=== PATIENT | female | born 1985 | race Caucasian/White ===

== ENCOUNTER 2019-07-12 22:05 | Emergency (ER) | payer MEDICAID ==
[2019-07-12 22:36] VITALS: BP 125/78
== END 2019-07-13 00:15 | disposition left against medical advice (07) ==
LOC: ED 22:05
DX: Z53.21 Procedure and treatment not carried out due to patient leaving prior to being seen by health care provider (principal)

== ENCOUNTER 2019-07-13 02:06 | Inpatient (IN) | payer MEDICAID ==
--- NOTE | 2019-07-13 02:43 | ED Physician Documentation ---
History of Present Illness - Stated complaint Stated Complaint: LT ARM PX - Chief complaint Chief Complaint: Wound - History obtained from History obtained from: Patient - History of Present Illness Timing: Yesterday Pain level now: 8 Improved by: rest Worsened by: movement, palpation Associated symptoms: swelling, rash - Additonal information Additional information: c/o left arm redness, swelling, pain, tenderness since yesterday. Patient is IV heroin user and she "tried to inject" into the area 3 days ago (says she could not get into a vein), and yesterday developed these symptoms and signs which have rapidly progressed since then. She denies h/o similar problem. Review of Systems Constitutional: denies: Fever, Chills, Sweats Cardiac: reports: Reviewed and negative Respiratory: reports: Reviewed and negative GI: reports: Reviewed and negative Skin: reports: Rash Musculoskeletal: reports: Extremity pain, Joint pain, Extremity swelling, Joint swelling Neurologic: denies: Focal weakness, Numbness PD PAST MEDICAL HISTORY - Past Medical History Cardiovascular: None Respiratory: None Neuro: None Endocrine/Autoimmune: None GI: None, Hepatitis ENGINE MAINTENANCE MECHANIC: None : None HEENT: None Psych: None Musculoskeletal: None Derm: Other Other Past Medical History: multiple open lesions noted to face and arms. HEPATITIS C - Past Surgical History Past Surgical History: Yes General: Cholecystectomy /ENGINE MAINTENANCE MECHANIC: Tubal ligation - Present Medications Home Medications: Ambulatory Orders Medication Instructions Recorded Confirmed No Known Home Medications 07/12/19 07/12/19 - Allergies Allergies/Adverse Reactions: Allergies Allergy/AdvReac Type Severity Reaction Status Date / Time No Known Drug Allergies Allergy Verified 07/12/19 22:36 - Social History Does the pt smoke?: Yes Smoking Status: Current every day smoker Does the pt drink ETOH?: No Does the pt have substance abuse?: Yes Substance Use and Type: Meth, Heroin - Immunizations Immunizations are current?: Yes - POLST Patient has POLST: No PD ED PE NORMAL - Vitals Vital signs reviewed: Yes - General General: Alert and oriented X 3, No acute distress, Well developed/nourished - Neck Neck: Supple, no meningeal sign - Cardiac Cardiac: RRR, No murmur - Respiratory Respiratory: No respiratory distress, Clear bilaterally - Abdomen Abdomen: Soft, Non tender PD ED PE EXPANDED - Extremities JEAN-CLAUDE UE/Hands Visual: 1 - rash (confluent erythema with sharp margins, hot to touch, worst at anterolateral elbow where there is large focal swelling and fluctuance with exquisite tenderness. limited elbow and FA ROM due to pain) Results - Vitals Vitals: Vital Signs - 24 hr 07/13/19 07/13/19 07/13/19 02:25 04:41 05:01 Temperature 36.5 C 36.5 C Heart Rate 112 H 100 98 Respiratory 20 15 16 Rate Blood Pressure 124/89 H 105/69 105/69 O2 Saturation 99 97 98 Oxygen O2 Source Room air - Labs Labs: Laboratory Tests 07/13/19 07/13/19 07/13/19 03:00 03:00 03:00 WBC 12.8 H RBC 4.32 Hgb 11.6 L Hct 36.8 L MCV 85.2 MCH 26.9 L MCHC 31.5 L RDW 14.0 Plt Count 423 MPV 9.2 Neut # (Auto) 9.8 H Lymph # (Auto) 2.0 [place] # (Auto) 0.8 Eos # (Auto) 0.2 Baso # (Auto) 0.1 Absolute Nucleated RBC 0.00 Nucleated RBC % 0.0 ESR PT INR Sodium 133 L Potassium 3.5 Chloride 93 L Carbon Dioxide 29 Anion Gap 11.0 BUN 18 Creatinine 0.5 Estimated GFR (MDRD) 142 Glucose 120 H Lactic Acid 0.8 Calcium 8.9 Total Bilirubin 0.7 AST 65 H ALT 65 H Alkaline Phosphatase 73 Total Creatine Kinase C-Reactive Protein Total Protein 8.1 Albumin 3.6 Globulin 4.5 H Albumin/Globulin Ratio 0.8 L Lipase 23 07/13/19 07/13/19 07/13/19 03:00 03:00 03:00 WBC RBC Hgb Hct MCV MCH MCHC RDW Plt Count MPV Neut # (Auto) Lymph # (Auto) [place] # (Auto) Eos # (Auto) Baso # (Auto) Absolute Nucleated RBC Nucleated RBC % ESR 40 H PT INR Sodium Potassium Chloride Carbon Dioxide Anion Gap BUN Creatinine Estimated GFR (MDRD) Glucose Lactic Acid Calcium Total Bilirubin AST ALT Alkaline Phosphatase Total Creatine Kinase 57 C-Reactive Protein 6.4 H Total Protein Albumin Globulin Albumin/Globulin Ratio Lipase 07/13/19 03:00 WBC RBC Hgb Hct MCV MCH MCHC RDW Plt Count MPV Neut # (Auto) Lymph # (Auto) [place] # (Auto) Eos # (Auto) Baso # (Auto) Absolute Nucleated RBC Nucleated RBC % ESR PT 13.3 H INR 1.2 Sodium Potassium Chloride Carbon Dioxide Anion Gap BUN Creatinine Estimated GFR (MDRD) Glucose Lactic Acid Calcium Total Bilirubin AST ALT Alkaline Phosphatase Total Creatine Kinase C-Reactive Protein Total Protein Albumin Globulin Albumin/Globulin Ratio Lipase - Rads (name of study) CT LUE with IV contrast Radiology: Prelim report reviewed, See rad report PD MEDICAL DECISION MAKING - ED course Complexity details: reviewed results, re-evaluated patient, considered differential, d/w patient Departure - Departure Disposition: [facility] DC/Xfer Clinical Impression: Abscess, Cellulitis Condition: Good Discharge Date/Time: 07/13/19 06:00
[2019-07-13] MEDS ORDERED: VANCOMYCIN INJ 1 GM in SODIUM CHLORIDE 0.9% 500 ML IV STA (03:16)
[2019-07-13] MEDS ORDERED: PIPERACILLIN/TAZOBACTAM 3.375 GM in SODIUM CHLORIDE 0.9% MINIBAG 100 ML IV STA (03:16)
[2019-07-13 03:19] LABS: BASOPHILS # (AUTO) 0.1 10^3/uL (0.0-0.1); BASOPHILS % (AUTO) 0.5 %; EOSINOPHILS # (AUTO) 0.2 10^3/uL (0.0-0.7); EOSINOPHILS % (AUTO) 1.3 %; HGB - HEMOGLOBIN 11.6 g/dL (12.0-16.0); LYMPHOCYTES % (AUTO) 15.6 %; MEAN CORPUSCULAR HEMOGLOBIN 26.9 pg (27.0-31.0); MEAN CORPUSCULAR HGB CONC 31.5 g/dL (32.0-36.0); MEAN CORPUSCULAR VOLUME 85.2 fL (81.0-99.0); MEAN PLATELET VOLUME 9.2 fL (7.9-10.8); MONOCYTES # (AUTO) 0.8 10^3/uL (0.0-1.0); MONOCYTES % (AUTO) 5.9 %; NEUTROPHILS # (AUTO) 9.8 10^3/uL (1.5-6.6); NEUTROPHILS % (AUTO) 76.2 %; PLT - PLATELET COUNT 423 10^3/uL (130-450); RED BLOOD COUNT 4.32 10^6/uL (4.20-5.40); WHITE BLOOD COUNT 12.8 x10^3/uL (4.8-10.8)
[2019-07-13 03:40] LABS: ALBUMIN 3.6 g/dL (3.2-5.5); ALBUMIN/GLOBULIN RATIO 0.8 (1.0-2.2); BILIRUBIN,TOTAL 0.7 mg/dL (0.2-1.0); CALCIUM 8.9 mg/dL (8.5-10.3); CREATININE 0.5 mg/dL (0.4-1.0); TOTAL PROTEIN 8.1 g/dL (6.7-8.2)
[2019-07-13] MEDS ORDERED: IOVERSOL 320 100 ML VIAL IVP ONE ×2 (04:24→04:31)
--- NOTE | 2019-07-13 04:52 | CT Report ---
Reason: LUE, abscess Procedure Date: 07/13/2019 Accession Number: [id number] / [id number] Procedure: CT - UPPER EXTREMITY W - LT CPT Code: Final Report FULL RESULT: EXAM: LEFT UPPER EXTREMITY CT WITH CONTRAST EXAM DATE: 07/13/2019 04:32 AM CLINICAL HISTORY: Left upper extremity redness and swelling, unable to lift arm, abscess. COMPARISON: None. TECHNIQUE: Thin-section axial images were acquired of the upper extremity from the mid humerus through the elbow after administration of intravenous contrast. IV contrast: . Post-processing: Coronal and sagittal reformats. Other: None. In accordance with CT protocol optimization, one or more of the following dose reduction techniques were utilized for this exam: automated exposure control, adjustment of mA and/or KV based on patient size, or use of iterative reconstructive technique. FINDINGS: Bones: No fracture or bone lesion. Joints: The visualized joint spaces are normal. Soft Tissues: Rim-enhancing subcutaneous and intramuscular abscess at the lateral aspect of the antecubital fossa measuring approximately 3 x 3 x 3 cm and is within a few millimeters of the skin surface. Collection involves the subcutaneous tissues as well as the anterior aspect of the brachioradialis muscle. Diffuse subcutaneous edema, consistent with surrounding cellulitis. No other abscess seen. No soft tissue gas. No vascular thrombosis. IMPRESSION: Approximately 3 x 3 x 3 cm abscess at the lateral aspect of the antecubital fossa which involves the subcutaneous tissues and proximal forearm musculature. RADIA
[2019-07-13] MEDS ORDERED: SODIUM CHLORIDE FLUSH 0.9% 10 ML SYRINGE IVP PRN (05:31)
--- NOTE | 2019-07-13 06:12 | HISTORY & PHYSICAL EXAMINATION ---
Chief Complaint - Chief Complaint Chief Complaint: Left arm swelling and redness History of Present Illness - Admitted From Admitted From:: Home - History Obtained From Records Reviewed: Yes History obtained from: Patient, ER Physician - History of Present Illness HPI Comment/Other: This is a 33 year old homeless female with a past medical history significant for meth and heroin use, and hepatitis C who presents complaining of left arm redness and swelling. Her arm became red two days ago but this has progressed over the last two days. She now has an area of swelling near her elbow that is tender to touch. She does use IV heroin and meth with her last use being one day ago when she used both. She last injected in that arm about four days ago. She reports no fevers, chills, nausea, vomiting. She has not had similar complaints in the past. She does have hepatitis C but denies a history of HIV. In the emergency department, she was afebrile but tachycardic. Blood pressure was borderline hypotensive but she reports that her blood pressure is on the lower side. Labs revealed an elevated white count with a left shift. Normal lactic acid. AST/ALT are mildly elevated. A CT of the left arm revealed a [id number] abscess at the lateral aspect for AC fossa involving subcutaneous tissue and proximal forearm muscles. Medicine was consulted for admission given these findings. 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 Living arrangement: Homeless Social History Notes: She is homeless and lives in [place], [place]. She is visiting her aunt and uncle here on [facility] for a few days. Reports smoking half a pack of cigarettes a day. Uses IV heroin and meth frequently. Last use was one day ago and she has been doing this since a teenager. Denies alcohol use. - Substance History Abuse: Recurrent use of substance despite neg consequences: Amphetamine, Opioid - POLST Patient has POLST: No Meds/Allgy - Home Medications Home Medications: Ambulatory Orders Medication Instructions Recorded Confirmed No Known Home Medications 07/12/19 07/12/19 - Allergies Allergies/Adverse Reactions: Allergies Allergy/AdvReac Type Severity Reaction Status Date / Time No Known Drug Allergies Allergy Verified 07/12/19 22:36 Review of Systems - Constitutional Constitutional: denies: Fatigue, Fever, Chills, Weakness, Poor appetite - Cardiovascular Cariovascular: denies: Chest pain, Lightheadedness, Exertional dyspnea, Decr. e xercise tolerance - Respiratory Respiratory: denies: Cough, SOB at rest, SOB with exertion - Gastrointestinal Gastrointestinal: denies: Abdominal pain, Nausea, Vomiting - Genitourinary Genitourinary: denies: Dysuria, Frequency, Urgency - Musculoskeletal Musculoskeletal: reports: Stiffness, Limited range of motion - Integumentary Integumentary: reports: Other (Erythema of left arm). denies: Rash - Neurological Neurological: reports: Numbness. denies: General weakness, Focal weakness, Dizziness - All Other Systems All Other Systems: reports: Reviewed and negative Prior Level of Functionality: Independent with ADL's. Exam - Vital Signs Reviewed Vital Signs: Yes Vital Signs: Vital Signs x48h Temp Pulse Resp BP Pulse Ox 07/13/19 05:01 36.5 C 98 16 105/69 98 07/13/19 04:41 100 15 105/69 97 07/13/19 02:25 36.5 C 112 H 20 124/89 H 99 - Physical Exam General Appearance: positive: No acute distress, Alert Eyes Bilateral: positive: Normal inspection ENT: positive: ENT inspection nml Neck: positive: Nml inspection Respiratory: positive: No respiratory distress, Breath sounds nml. negative: Wheezes, Rales, Rhonchi Cardiovascular: positive: No murmur, Tachycardia. negative: Bradycardia, Systolic murmur, Diastolic murmur Peripheral Pulses: positive: 2+ Abdomen: positive: Non-tender, No distention. negative: Tenderness, Guarding, Rebound Skin: positive: Color nml, Warm, Dry, Other (Erythema of her left arm extending form the mid humerus to the mid forearm. There is an area of induration over the lateral aspect of her forearm that is about 3cm. It is tender and warm to touch.) Extremities: positive: No pedal edema. negative: Non-tender (Decreased range of motion of the left forearm secondary to swelling and pain.) Neurologic/Psychiatric: positive: Oriented x3, Motor nml. negative: Disoriented to person, Disoriented to place, Disoriented to time, Weakness Sepsis Event Note (H) - Evaluation Current Stage of Sepsis: Sepsis Possible source of Sepsis: positive: Skin/soft tissue - Sepsis Criteria Sepsis Criteria: Recorded Heart Rate greater than 90 bpm, WBC count greater than 12,000 or less than 4000 Conclusion/Plan - Problem List (1) Sepsis due to cellulitis Conclusion/Plan: This is secondary to her left forearm abscess and cellulitis. Presented with tachycardia and leukocytosis with left shift. Will continue Vancomycin IV and follow up blood cultures to rule out bacteremia. Monitor CBC. (2) Abscess of left forearm Conclusion/Plan: She has a [id number] abscess of the proximal left forearm involving the subcutaneous tissue and proximal forearm muscles and surround cellulitis. This is the source of her sepsis. Likely secondary to her IV drug use. Will continue Vancomycin IV given her IV drug use history to cover for MRSA. Will hold off on anaerobic coverage as she is not immunocompromised. Check ESR/CRP. Will consult orthopedics for I&D. (3) IV drug user Conclusion/Plan: She regularly uses IV meth and heroin with last use being one day ago. Does not appear to be going through withdrawal at this time. Will monitor for signs of withdrawal. Social work consult. (4) Hepatitis C Conclusion/Plan: Secondary to IV drug use. AST/ALT elevated in the 60's. Outpatient follow up. - Lab Results Lab results reviewed: Yes Fish Bones: 07/13/19 03:00 07/13/19 03:00 - Diagnostic Imaging Results Diagnostic Imaging Results: positive: Final report reviewed Core Measures - Anticipated LOS I expect patient to be DC'd or transferred within 96 hours.: Yes - Issues Hospital Issues and Management Plan: Abscess of left forearm extending to musculature that will require drainage and IV antibiotics. - DVT/VTE - Prophylaxis VTE/DVT Device ordered at admit?: Yes VTE/DVT Prophylaxis med ordered at admit?: Yes
[2019-07-13] MEDS ORDERED: LACTATED RINGERS 1,000 ML IV ONE ×3 (06:37→12:44)
[2019-07-13 07:01] LABS: INR 1.2 (0.8-1.2); PT - PROTHROMBIN TIME 13.3 secs (9.9-12.6)
[2019-07-13] MEDS: LACTATED RINGERS 1,000 ML IV SCH ×2 (08:00→16:41)
[2019-07-13] MEDS ORDERED: SODIUM CHLORIDE FLUSH 0.9% 10 ML SYRINGE IVP SCH (09:00)
[2019-07-13] MEDS ORDERED: SODIUM CHLORIDE 0.9% IV SCH ×2 (09:00)
[2019-07-13] MEDS ORDERED: VANCOMYCIN PER PHARMACY IV SCH (09:00)
[2019-07-13] MEDS ORDERED: VANCOMYCIN IV SCH (09:00)
--- NOTE | 2019-07-13 10:27 | PROVIDER PROGRESS NOTE ---
Subjective - Prog Note Date Prog Note Date: 07/13/19 Prog Note Time: 10:25 - Subjective Pt reports feeling: Worse (IV drug abuser with a four day history of worsening left proximal forearm swelling and redness at an injection site.) Objective - Vital Signs/Intake & Output Vital Signs: Vital Signs x48h Temp Pulse Pulse Resp BP BP Pulse Ox 07/13/19 08:44 36.6 C 89 16 97 07/13/19 08:10 36.4 C L 98 16 94/61 97 07/13/19 07:51 36.6 C 89 16 95/59 L 99 07/13/19 06:20 37 C 96 16 96/50 L 98 07/13/19 05:01 36.5 C 98 16 105/69 98 07/13/19 04:41 100 15 105/69 97 Intake & Output: Intake & Output 07/10/19 07/11/19 07/12/19 07/13/19 23:59 23:59 23:59 23:59 Intake Total 1600 Balance 1600 - Lab Results Fish Bones: 07/13/19 03:00 07/13/19 03:00 Other Labs: Lab Results x24hrs 07/13/19 07/13/19 07/13/19 Range/Units 03:00 03:00 03:00 WBC (4.8-10.8) x10^3/uL RBC (4.20-5.40) 10^6/uL Hgb (12.0-16.0) g/dL Hct (37.0-47.0) % MCV (81.0-99.0) fL MCH (27.0-31.0) pg MCHC (32.0-36.0) g/dL RDW (12.0-15.0) % Plt Count (130-450) 10^3/uL MPV (7.9-10.8) fL Neut # (Auto) (1.5-6.6) 10^3/uL Lymph # (Auto) (1.5-3.5) 10^3/uL [place] # (Auto) (0.0-1.0) 10^3/uL Eos # (Auto) (0.0-0.7) 10^3/uL Baso # (Auto) (0.0-0.1) 10^3/uL Absolute Nucleated RBC x10^3/uL Nucleated RBC % /100WBC ESR (0-20) mm/Hr PT 13.3 H (9.9-12.6) secs INR 1.2 (0.8-1.2) Sodium (135-145) mmol/L Potassium (3.5-5.0) mmol/L Chloride (101-111) mmol/L Carbon Dioxide (21-32) mmol/L Anion Gap (6-13) BUN (6-20) mg/dL Creatinine (0.4-1.0) mg/dL Estimated GFR (MDRD) (>89) Glucose (70-100) mg/dL Lactic Acid (0.5-2.2) mmol/L Calcium (8.5-10.3) mg/dL Total Bilirubin (0.2-1.0) mg/dL AST (10-42) IU/L ALT (10-60) IU/L Alkaline Phosphatase (42-121) IU/L Total Creatine Kinase 57 (22-269) IU/L C-Reactive Protein 6.4 H (0-1.0) mg/dL Total Protein (6.7-8.2) g/dL Albumin (3.2-5.5) g/dL Globulin (2.1-4.2) g/dL Albumin/Globulin Ratio (1.0-2.2) Lipase (22-51) U/L 07/13/19 07/13/19 07/13/19 Range/Units 03:00 03:00 03:00 WBC (4.8-10.8) x10^3/uL RBC (4.20-5.40) 10^6/uL Hgb (12.0-16.0) g/dL Hct (37.0-47.0) % MCV (81.0-99.0) fL MCH (27.0-31.0) pg MCHC (32.0-36.0) g/dL RDW (12.0-15.0) % Plt Count (130-450) 10^3/uL MPV (7.9-10.8) fL Neut # (Auto) (1.5-6.6) 10^3/uL Lymph # (Auto) (1.5-3.5) 10^3/uL [place] # (Auto) (0.0-1.0) 10^3/uL Eos # (Auto) (0.0-0.7) 10^3/uL Baso # (Auto) (0.0-0.1) 10^3/uL Absolute Nucleated RBC x10^3/uL Nucleated RBC % /100WBC ESR 40 H (0-20) mm/Hr PT (9.9-12.6) secs INR (0.8-1.2) Sodium 133 L (135-145) mmol/L Potassium 3.5 (3.5-5.0) mmol/L Chloride 93 L (101-111) mmol/L Carbon Dioxide 29 (21-32) mmol/L Anion Gap 11.0 (6-13) BUN 18 (6-20) mg/dL Creatinine 0.5 (0.4-1.0) mg/dL Estimated GFR (MDRD) 142 (>89) Glucose 120 H (70-100) mg/dL Lactic Acid 0.8 (0.5-2.2) mmol/L Calcium 8.9 (8.5-10.3) mg/dL Total Bilirubin 0.7 (0.2-1.0) mg/dL AST 65 H (10-42) IU/L ALT 65 H (10-60) IU/L Alkaline Phosphatase 73 (42-121) IU/L Total Creatine Kinase (22-269) IU/L C-Reactive Protein (0-1.0) mg/dL Total Protein 8.1 (6.7-8.2) g/dL Albumin 3.6 (3.2-5.5) g/dL Globulin 4.5 H (2.1-4.2) g/dL Albumin/Globulin Ratio 0.8 L (1.0-2.2) Lipase 23 (22-51) U/L 07/13/19 Range/Units 03:00 WBC 12.8 H (4.8-10.8) x10^3/uL RBC 4.32 (4.20-5.40) 10^6/uL Hgb 11.6 L (12.0-16.0) g/dL Hct 36.8 L (37.0-47.0) % MCV 85.2 (81.0-99.0) fL MCH 26.9 L (27.0-31.0) pg MCHC 31.5 L (32.0-36.0) g/dL RDW 14.0 (12.0-15.0) % Plt Count 423 (130-450) 10^3/uL MPV 9.2 (7.9-10.8) fL Neut # (Auto) 9.8 H (1.5-6.6) 10^3/uL Lymph # (Auto) 2.0 (1.5-3.5) 10^3/uL [place] # (Auto) 0.8 (0.0-1.0) 10^3/uL Eos # (Auto) 0.2 (0.0-0.7) 10^3/uL Baso # (Auto) 0.1 (0.0-0.1) 10^3/uL Absolute Nucleated RBC 0.00 x10^3/uL Nucleated RBC % 0.0 /100WBC ESR (0-20) mm/Hr PT (9.9-12.6) secs INR (0.8-1.2) Sodium (135-145) mmol/L Potassium (3.5-5.0) mmol/L Chloride (101-111) mmol/L Carbon Dioxide (21-32) mmol/L Anion Gap (6-13) BUN (6-20) mg/dL Creatinine (0.4-1.0) mg/dL Estimated GFR (MDRD) (>89) Glucose (70-100) mg/dL Lactic Acid (0.5-2.2) mmol/L Calcium (8.5-10.3) mg/dL Total Bilirubin (0.2-1.0) mg/dL AST (10-42) IU/L ALT (10-60) IU/L Alkaline Phosphatase (42-121) IU/L Total Creatine Kinase (22-269) IU/L C-Reactive Protein (0-1.0) mg/dL Total Protein (6.7-8.2) g/dL Albumin (3.2-5.5) g/dL Globulin (2.1-4.2) g/dL Albumin/Globulin Ratio (1.0-2.2) Lipase (22-51) U/L - Diagnostic Imaging Diagnostic Imaging Comments: CT scan shows probable anterolateral proximal forearm abscess with surrounding cellulitis - Other Results/Comments Other Results/Comments: EXAM: Left elbow/forearm: Exquisitely tender, red, swollen mass lateral to the antcubital fossa, measuring 4 cmdiameter.. Painful elbow motion from tender mass. MOves fingers well. Sensation intact. Sepsis Event Note (H) - Evaluation Current Stage of Sepsis: Sepsis Possible source of Sepsis: positive: Skin/soft tissue - Sepsis Criteria Sepsis Criteria: Recorded Heart Rate greater than 90 bpm, WBC count greater than 12,000 or less than 4000 Assessment/Plan - Problem List (1) Abscess of left forearm Impression: PLAN: To OR this AM for I&D of left forearm abscess. Consent signed.
--- NOTE | 2019-07-13 11:09 | CONSULTATION NOTE ---
DATE OF SERVICE: 07/13/2019 Physician: Reece Figureedo MD REFERRING PHYSICIAN: Dr. Mejia of the hospitalist service CHIEF COMPLAINT: "My left elbow hurts." HISTORY OF PRESENT ILLNESS: Patient is a 33-year-old female, right hand dominant, IV drug abuser, who apparently injected the lateral aspect of her elbow approximately 4 days ago. About 2 da ys prior to admission, she began noticing increasing redness, swelling and tenderness at the injectio n site. It finally reached the point where she had to seek medical attention last evening. She jeremiah es any distal weakness or numbness. Is able to move her fingers and her thumb well. Denies any prio r abscesses that required surgical treatment. Apparently, she had some food at about 2 in the mornin g. PHYSICAL EXAMINATION: Patient's left forearm and elbow were examined. She is hesitant to move the e lbow secondary to pain to the mass that is visible in the lateral aspect of her antecubital fossa reg ion. This mass appears to be about 4 cm in diameter, is red, tender, and quite swollen. Neurovascul ar appears to be intact distally in the upper extremity. IMAGING: CT scan that was done of the forearm was reviewed and shows a collection of fluid, likely a n abscess, which corresponds to the area that was seen clinically. ASSESSMENT: 1. Left nondominant forearm abscess lateral to the antecubital area from intravenous injection site 4 days ago. 2. History of intravenous drug abuse. PLAN: We will plan on taking her to the operating room later this morning to do an incision and drai nage of her abscess in the forearm. The risks and benefits of surgery were explained to patient. Sylvester fountain of her questions were answered. She wished to proceed with surgery as planned. Consent signed. TD: 07/13/2019 10:36
--- NOTE | 2019-07-13 11:20 | ANESTHESIA ---
Pre-Anesthesia VS, & Labs - Diagnosis left forearm abcess - Procedure left forearm InD Vital Signs: Temp Pulse Resp BP Pulse Ox 36.7 C 93 16 100/63 98 07/13/19 10:58 07/13/19 10:58 07/13/19 10:58 07/13/19 10:58 07/13/19 10:58 Height 5 ft 3 in Weight (kg) 50.5 kg Body Mass Index 19.7 - Is Patient ?: No - Lab Results Current Lab Results: Laboratory Tests 07/13/19 03:00: PT 13.3 H, INR 1.2 07/13/19 03:00: Total Creatine Kinase 57 07/13/19 03:00: C-Reactive Protein 6.4 H 07/13/19 03:00: ESR 40 H 07/13/19 03:00: Lactic Acid 0.8 07/13/19 03:00: Sodium 133 L, Potassium 3.5, Chloride 93 L, Carbon Dioxide 29, Anion Gap 11.0, BUN 18, Creatinine 0.5, Estimated GFR (MDRD) 142, Glucose 120 H, Calcium 8.9, Total Bilirubin 0.7, AST 65 H, ALT 65 H, Alkaline Phosphatase 73, Total Protein 8.1, Albumin 3.6, Globulin 4.5 H, Albumin/Globulin Ratio 0.8 L, Lipase 23 07/13/19 03:00: WBC 12.8 H, RBC 4.32, Hgb 11.6 L, Hct 36.8 L, MCV 85.2, MCH 26.9 L, MCHC 31.5 L, RDW 14.0, Plt Count 423, MPV 9.2, Neut # (Auto) 9.8 H, Lymph # (Auto) 2.0, [place] # (Auto) 0.8, Eos # (Auto) 0.2, Baso # (Auto) 0.1, Absolute Nucleated RBC 0.00, Nucleated RBC % 0.0 Fish Bones: 07/14/19 05:15 07/14/19 05:15 Home Medications and Allergies Active Medications Heparin Sodium (Porcine) () 5,000 unit SUBQ BID ATUL Lactated Ringer's (Lr) 1,000 mls @ 100 mls/hr IV .Q10H ATUL Last Admin: 07/13/19 08:00 Dose: 100 mls/hr Vancomycin HCl 0.75 gm/ Sodium (Chloride) 250 mls @ 167 mls/hr IV Q8H [facility] Sodium Chloride (Normal Saline Flush 0.9%) 10 ml IVP PRN PRN PRN Reason: NEEDED PER PROVIDER ORDERS Sodium Chloride (Normal Saline Flush 0.9%) 10 ml IVP 0100,0900,1700 [facility] Last Admin: 07/13/19 10:48 Dose: Not Given No Known Home Medications 07/12/19 Allergies/Adverse Reactions: Allergies Allergy/AdvReac Type Severity Reaction Status Date / Time No Known Drug Allergies Allergy Verified 07/12/19 22:36 Anes History & Medical History - Anesthetic History Anesthesia Complications: reports: No previous complications Family history of Anesthesia Complications: Denies Family history of Malignant Hyperthermia: Denies - Medical History Cardiovascular: reports: None Pulmonary: reports: None Gastrointestinal: reports: None, Hepatitis (HepC positive for a year) Urinary: reports: None Neuro: reports: None Musculoskeletal: reports: None Endocrine/Autoimmune: reports: None Blood Disorders: reports: None Skin: reports: None, Other Smoking Status: Current every day smoker (1/2PPD for 15 years) Psychosocial: reports: Depression, Anxiety, Amphetamine, Other (heroin. last used 2 days ago) Other Past Medical History: multiple open lesions noted to face and arms. HEPATITIS C - Surgical History General: Cholecystectomy Gynecologic: Tubal ligation Exam General: Alert, Oriented x3, Cooperative, No acute distress Dental: Poor dentition (missing teeth and poor dentition.) Mouth Openin Fingerbreadth Neck Mobility: Normal Mallampati classification: III Thyromental Distance: 4-6 cm Respiratory: Lungs clear, Normal breath sounds, No respiratory distress, No accessory muscle use Cardiovascular: Regular rate, Normal S1, Normal S2, No murmurs Abdomen: Normal bowel sounds, Soft, No tenderness, No hepatospenomegaly, No mass es Extremities: No clubbing, No cyanosis, No edema, Normal pulses, No tende rness/swelling Neurological: Normal gait, Normal speech, Strength at 5/5 X4 ext, Normal tone, Sensation intact, Cranial nerves 3-12 NL, Reflexes 2+ Mental/Cognitive Status: Alert/Oriented X3, Normal for patient Cognitive Status: Within normal limits Plan Anesthesia Type: General Consent for Procedure(s) Verified and Reviewed: Yes Code Status: Attempt Resuscitation ASA classification: 2-Mild systemic disease Is this case an emergency?: No
[2019-07-13] MEDS ORDERED: MORPHINE 2 MG/ML CARPUJECT IVP PRN (12:38)
[2019-07-13] MEDS ORDERED: ONDANSETRON 4 MG/2 ML VIAL IVP PRN (12:38)
[2019-07-13] MEDS ORDERED: PROCHLORPERAZINE 10 MG/2 ML VIAL IVP PRN (12:38)
[2019-07-13] MEDS ORDERED: DOCUSATE SODIUM 100 MG CAPSULE PO PRN (12:38)
[2019-07-13] MEDS ORDERED: SENNA 8.6 MG TABLET PO PRN (12:38)
--- NOTE | 2019-07-13 12:38 | OPERATIVE REPORT ---
Operative Report - General Admit Date: 07/13/19 Procedure Date: 07/13/19 Planned Procedure: Incision and drainage of left forearm abscess Pre-Op Diagnosis: Left forearm abscess Procedure Performed: Incision and drainage of left forearm abscess Post Op Diagnosis: Same - Procedure Note Primary Surgeon: Ara Figueredo MD Anesthesia Provider: Elizabeth Bustos Anesthesia Technique: General LMA IV Fluids (mL): 600 Estimated Blood Loss (mL): 50 Drain/Tube Type: Other (1/2 inch gauze packing) Complications: None
--- NOTE | 2019-07-13 12:54 | OPERATIVE REPORT ---
DATE OF SERVICE: 07/13/2019 Physician: Reece Figueredo MD PREOPERATIVE DIAGNOSIS: Left forearm abscess. POSTOPERATIVE DIAGNOSIS: Left forearm abscess. PROCEDURE PERFORMED: Incision and drainage of left forearm abscess. SURGEON: Reece Figueredo MD ANESTHESIA: General. DESCRIPTION OF PROCEDURE: The patient was taken to the operating room on the early afternoon of 09/2018, where she was placed under general anesthetic in the supine position without any complication s. We then prepped and draped the left upper extremity in the usual fashion for our procedure. A longitudinal lateral skin incision was then made overlying the prominence in the lateral proximal f orearm where the abscess was. After the skin incision was made, we came into the abscess pocket. Pu rulent drainage was noted and samples were sent to microbiology for aerobic and anaerobic cultures. We then copiously irrigated the abscess cavity with sterile saline using a total of 2000 mL of irriga tion solution. Afterwards, we packed the cavity open with 1/2-inch gauze roll and then a soft dressi ng overlying the wound. The patient was then awoken from her anesthesia and taken to the recovery ro om in satisfactory condition after we completed the dressings with a roll of gauze, Kerlix, and an Ac e wrap. ESTIMATED BLOOD LOSS: 50 mL REPLACEMENT: 600 mL of crystalloid. TOURNIQUET TIME: None. PLAN: We will change the dressing and packing in 24-36 hours. We will then do daily packing changes and let the wound heal secondarily. We will continue on IV antibiotics. TD: 07/13/2019 12:46
[2019-07-13] MEDS: VANCOMYCIN INJ 0.75 GM in SODIUM CHLORIDE 0.9% 250 ML IV SCH ×2 (13:57→20:12)
--- NOTE | 2019-07-13 14:48 | PROVIDER PROGRESS NOTE ---
Subjective - Prog Note Date Prog Note Date: 07/13/19 - Subjective Pt reports feeling: No change (Ms. Perales is still quite sleepy from her surgery this morning. She rouses easily to voice. ROM is quite limited due to pain. She has not eaten yet today. Was just getting up to void for the first time) Objective - Vital Signs/Intake & Output Vital Signs: Vital Signs x48h Temp Pulse Pulse Resp BP BP Pulse Ox 07/13/19 14:36 36.3 C L 89 16 92/59 L 98 07/13/19 14:00 36.3 C L 81 16 94/59 L 98 07/13/19 13:30 36.4 C L 87 16 99/62 97 07/13/19 13:22 36.4 C L 91 16 100/60 96 07/13/19 13:09 36.7 C 103 H 16 104/75 100 07/13/19 13:04 36.7 C 102 H 16 92/61 98 07/13/19 12:59 36.7 C 80 20 101/62 100 07/13/19 12:54 36.7 C 79 16 95/67 100 07/13/19 12:49 36.7 C 85 16 90/63 100 07/13/19 12:44 36.9 C 79 16 95/67 100 07/13/19 10:58 36.7 C 93 16 100/63 98 07/13/19 08:44 36.6 C 89 16 97 07/13/19 08:10 36.4 C L 98 16 94/61 97 07/13/19 07:51 36.6 C 89 16 95/59 L 99 Intake & Output: Intake & Output 07/10/19 07/11/19 07/12/19 07/13/19 23:59 23:59 23:59 23:59 Intake Total 1840 Balance 1840 - Lab Results Fish Bones: 07/13/19 03:00 07/13/19 03:00 Other Labs: Lab Results x24hrs 07/13/19 07/13/19 07/13/19 Range/Units 03:00 03:00 03:00 WBC (4.8-10.8) x10^3/uL RBC (4.20-5.40) 10^6/uL Hgb (12.0-16.0) g/dL Hct (37.0-47.0) % MCV (81.0-99.0) fL MCH (27.0-31.0) pg MCHC (32.0-36.0) g/dL RDW (12.0-15.0) % Plt Count (130-450) 10^3/uL MPV (7.9-10.8) fL Neut # (Auto) (1.5-6.6) 10^3/uL Lymph # (Auto) (1.5-3.5) 10^3/uL [place] # (Auto) (0.0-1.0) 10^3/uL Eos # (Auto) (0.0-0.7) 10^3/uL Baso # (Auto) (0.0-0.1) 10^3/uL Absolute Nucleated RBC x10^3/uL Nucleated RBC % /100WBC ESR (0-20) mm/Hr PT 13.3 H (9.9-12.6) secs INR 1.2 (0.8-1.2) Sodium (135-145) mmol/L Potassium (3.5-5.0) mmol/L Chloride (101-111) mmol/L Carbon Dioxide (21-32) mmol/L Anion Gap (6-13) BUN (6-20) mg/dL Creatinine (0.4-1.0) mg/dL Estimated GFR (MDRD) (>89) Glucose (70-100) mg/dL Lactic Acid (0.5-2.2) mmol/L Calcium (8.5-10.3) mg/dL Total Bilirubin (0.2-1.0) mg/dL AST (10-42) IU/L ALT (10-60) IU/L Alkaline Phosphatase (42-121) IU/L Total Creatine Kinase 57 (22-269) IU/L C-Reactive Protein 6.4 H (0-1.0) mg/dL Total Protein (6.7-8.2) g/dL Albumin (3.2-5.5) g/dL Globulin (2.1-4.2) g/dL Albumin/Globulin Ratio (1.0-2.2) Lipase (22-51) U/L 07/13/19 07/13/19 07/13/19 Range/Units 03:00 03:00 03:00 WBC (4.8-10.8) x10^3/uL RBC (4.20-5.40) 10^6/uL Hgb (12.0-16.0) g/dL Hct (37.0-47.0) % MCV (81.0-99.0) fL MCH (27.0-31.0) pg MCHC (32.0-36.0) g/dL RDW (12.0-15.0) % Plt Count (130-450) 10^3/uL MPV (7.9-10.8) fL Neut # (Auto) (1.5-6.6) 10^3/uL Lymph # (Auto) (1.5-3.5) 10^3/uL [place] # (Auto) (0.0-1.0) 10^3/uL Eos # (Auto) (0.0-0.7) 10^3/uL Baso # (Auto) (0.0-0.1) 10^3/uL Absolute Nucleated RBC x10^3/uL Nucleated RBC % /100WBC ESR 40 H (0-20) mm/Hr PT (9.9-12.6) secs INR (0.8-1.2) Sodium 133 L (135-145) mmol/L Potassium 3.5 (3.5-5.0) mmol/L Chloride 93 L (101-111) mmol/L Carbon Dioxide 29 (21-32) mmol/L Anion Gap 11.0 (6-13) BUN 18 (6-20) mg/dL Creatinine 0.5 (0.4-1.0) mg/dL Estimated GFR (MDRD) 142 (>89) Glucose 120 H (70-100) mg/dL Lactic Acid 0.8 (0.5-2.2) mmol/L Calcium 8.9 (8.5-10.3) mg/dL Total Bilirubin 0.7 (0.2-1.0) mg/dL AST 65 H (10-42) IU/L ALT 65 H (10-60) IU/L Alkaline Phosphatase 73 (42-121) IU/L Total Creatine Kinase (22-269) IU/L C-Reactive Protein (0-1.0) mg/dL Total Protein 8.1 (6.7-8.2) g/dL Albumin 3.6 (3.2-5.5) g/dL Globulin 4.5 H (2.1-4.2) g/dL Albumin/Globulin Ratio 0.8 L (1.0-2.2) Lipase 23 (22-51) U/L 07/13/19 Range/Units 03:00 WBC 12.8 H (4.8-10.8) x10^3/uL RBC 4.32 (4.20-5.40) 10^6/uL Hgb 11.6 L (12.0-16.0) g/dL Hct 36.8 L (37.0-47.0) % MCV 85.2 (81.0-99.0) fL MCH 26.9 L (27.0-31.0) pg MCHC 31.5 L (32.0-36.0) g/dL RDW 14.0 (12.0-15.0) % Plt Count 423 (130-450) 10^3/uL MPV 9.2 (7.9-10.8) fL Neut # (Auto) 9.8 H (1.5-6.6) 10^3/uL Lymph # (Auto) 2.0 (1.5-3.5) 10^3/uL [place] # (Auto) 0.8 (0.0-1.0) 10^3/uL Eos # (Auto) 0.2 (0.0-0.7) 10^3/uL Baso # (Auto) 0.1 (0.0-0.1) 10^3/uL Absolute Nucleated RBC 0.00 x10^3/uL Nucleated RBC % 0.0 /100WBC ESR (0-20) mm/Hr PT (9.9-12.6) secs INR (0.8-1.2) Sodium (135-145) mmol/L Potassium (3.5-5.0) mmol/L Chloride (101-111) mmol/L Carbon Dioxide (21-32) mmol/L Anion Gap (6-13) BUN (6-20) mg/dL Creatinine (0.4-1.0) mg/dL Estimated GFR (MDRD) (>89) Glucose (70-100) mg/dL Lactic Acid (0.5-2.2) mmol/L Calcium (8.5-10.3) mg/dL Total Bilirubin (0.2-1.0) mg/dL AST (10-42) IU/L ALT (10-60) IU/L Alkaline Phosphatase (42-121) IU/L Total Creatine Kinase (22-269) IU/L C-Reactive Protein (0-1.0) mg/dL Total Protein (6.7-8.2) g/dL Albumin (3.2-5.5) g/dL Globulin (2.1-4.2) g/dL Albumin/Globulin Ratio (1.0-2.2) Lipase (22-51) U/L Sepsis Event Note (H) - Evaluation Current Stage of Sepsis: Sepsis Possible source of Sepsis: positive: Skin/soft tissue - Sepsis Criteria Sepsis Criteria: Recorded Heart Rate greater than 90 bpm, WBC count greater than 12,000 or less than 4000 Assessment/Plan - Problem List (1) Sepsis due to cellulitis Impression: Presented to the ED w/ R elbow swelling, pain, redness and tenderness 3 days after trying to inject into that same site. Sepsis criteria met with an elevated HR (in low 100s) and a WBC of 12.8. BC were drawn and she was started on IV Vancomycin. CRP was slightly elevated at 6.4. ESR was 40. Kidney function WNL -Check nares for MRSA -Place on contact isolation until MRSA ruled out -CBC/BMP in the am -CRP/ESR in the am -Follow blood cx -Narrow ABX as able (2) Abscess of left forearm Impression: Abscess of the proximal left forearm involving the subcutaneous tissue and proximal forearm muscles measures 3X3cm. Likely source of sepsis and caused by her IVDU. Othro did an I&D this morning and sent drainage fluid to the lab for cx. I&D site currently packed w/ gauze and wrapped in TRANG bandage. Her ROM is moderately inhibited by pain and swelling. Sensation to LUE is intact. Will continue Vanco and narrow as needed once cultures result. -Nurse to assess CSM Q shift -Change dressing as needed if saturated (3) IV drug user Impression: She regularly uses IV meth and heroin with last use 2 days ago. Does not appear to have any symptoms of withdrawal. Social work is involved. -Monitor for s/s withdrawal -Check for hep B -Check for HIV (4) Hepatitis C Impression: Secondary to IVDU. Does not appear to have s/s liver injury at this time. ALT and AST slightly elevated at 65. -As noted, CMP in AM -Request that social work provide pt w/ list of PCPs for possible outpatient treatment of hep C. (5) Nicotine dependence Impression: 7.5 pack years. Not interested in quitting at this time. Declines Nicotine patch at this time but she is aware that she can let us know if she changes her mind. Qualifiers: Nicotine product type: cigarettes
[2019-07-13] MEDS: SODIUM CHLORIDE FLUSH 0.9% 10 ML SYRINGE IVP SCH (16:41)
[2019-07-13] MEDS: MULTIVITAMIN TABLET PO SCH (16:41)
[2019-07-13] MEDS ORDERED: DEXAMETHASONE 4 MG/ML VIAL IVP ONE (18:05)
[2019-07-13] MEDS ORDERED: fentaNYL 100 MCG/2 ML VIAL IVP ONE (18:05)
[2019-07-13] MEDS ORDERED: GLYCOPYRROLATE 1 MG/5 ML VIAL IVP ONE (18:05)
[2019-07-13] MEDS ORDERED: NEOSTIGMINE 1 MG/1 ML 10 ML MDV IVP ONE (18:05)
[2019-07-13] MEDS ORDERED: PROPOFOL 200 MG/20 ML VIAL IVP ONE (18:05)
[2019-07-13] MEDS ORDERED: MIDAZOLAM 2 MG/2 ML VIAL IVP ONE (18:05)
[2019-07-13] MEDS: HEPARIN 5,000 UNIT/ML VIAL SUBQ SCH (20:36)
[2019-07-13] MEDS: ACETAMINOPHEN 325 MG TABLET PO PRN (20:47)
[2019-07-13] MEDS: oxyCODONE 5 MG TABLET PO PRN (20:48)
[2019-07-14] MEDS: SODIUM CHLORIDE FLUSH 0.9% 10 ML SYRINGE IVP SCH ×2 (00:06→09:44)
[2019-07-14] MEDS ORDERED: HYDROmorphone 2 MG/ML VIAL IVP PRN (00:58)
[2019-07-14] MEDS ORDERED: HYDROmorphone 0.5 MG/0.5 ML SYRINGE ONE (01:18)
[2019-07-14] MEDS: LACTATED RINGERS 1,000 ML IV SCH (04:08)
[2019-07-14] MEDS: VANCOMYCIN INJ 0.75 GM in SODIUM CHLORIDE 0.9% 250 ML IV SCH (04:15)
[2019-07-14] MEDS: HYDROmorphone 0.5 MG/0.5 ML SYRINGE IVP PRN ×3 (04:19→14:23)
[2019-07-14 06:05] LABS: LYMPHOCYTES % (AUTO) 9.1 %; MEAN CORPUSCULAR HEMOGLOBIN 26.8 pg (27.0-31.0); MEAN CORPUSCULAR HGB CONC 30.9 g/dL (32.0-36.0); MEAN CORPUSCULAR VOLUME 86.8 fL (81.0-99.0); MEAN PLATELET VOLUME 9.9 fL (7.9-10.8); NEUTROPHILS % (AUTO) 86.8 %; PLT - PLATELET COUNT 399 10^3/uL (130-450); WHITE BLOOD COUNT 15.8 x10^3/uL (4.8-10.8)
[2019-07-14 06:06] LABS: BASOPHILS % (AUTO) 0.3 %; LYMPHOCYTES # (AUTO) 1.4 10^3/uL (1.5-3.5); MONOCYTES # (AUTO) 0.5 10^3/uL (0.0-1.0); NEUTROPHILS # (AUTO) 13.7 10^3/uL (1.5-6.6)
[2019-07-14 06:24] LABS: CALCIUM 8.9 mg/dL (8.5-10.3); CREATININE 0.4 mg/dL (0.4-1.0); CRP - C-REACTIVE PROTEIN 4.9 mg/dL (0-1.0); MAGNESIUM 2.4 mg/dL (1.7-2.8)
[2019-07-14] MEDS ORDERED: MULTIVITAMIN W/MINERALS TABLET PO SCH (08:00)
[2019-07-14] MEDS: METHADONE 5 MG TABLET PO SCH ×2 (09:44→12:57)
[2019-07-14] MEDS: MULTIVITAMIN TABLET PO SCH (09:44)
[2019-07-14] MEDS: ACETAMINOPHEN 325 MG TABLET PO PRN (09:49)
[2019-07-14] MEDS: oxyCODONE 5 MG TABLET PO PRN (09:50)
[2019-07-14] MEDS: HEPARIN 5,000 UNIT/ML VIAL SUBQ SCH (11:16)
[2019-07-14] MEDS: SODIUM CHLORIDE FLUSH 0.9% 10 ML SYRINGE IVP PRN ×2 (11:33→14:24)
--- NOTE | 2019-07-14 12:27 | PROVIDER PROGRESS NOTE ---
Subjective - Prog Note Date Prog Note Date: 07/14/19 Prog Note Time: 12:23 - Subjective Pt reports feeling: Improved Objective - Vital Signs/Intake & Output Vital Signs: Vital Signs x48h Temp Pulse Resp BP Pulse Ox 07/14/19 06:40 35.9 C L 53 L 16 117/72 100 Intake & Output: Intake & Output 07/11/19 07/12/19 07/13/19 07/14/19 23:59 23:59 23:59 23:59 Intake Total 4288.333 1310 Balance 4288.333 1310 - Lab Results Fish Bones: 07/14/19 05:15 07/14/19 05:15 Other Labs: Lab Results x24hrs 07/14/19 07/14/19 07/14/19 Range/Units 05:15 05:15 05:15 WBC 15.8 H (4.8-10.8) x10^3/uL RBC 4.10 L (4.20-5.40) 10^6/uL Hgb 11.0 L (12.0-16.0) g/dL Hct 35.6 L (37.0-47.0) % MCV 86.8 (81.0-99.0) fL MCH 26.8 L (27.0-31.0) pg MCHC 30.9 L (32.0-36.0) g/dL RDW 14.0 (12.0-15.0) % Plt Count 399 (130-450) 10^3/uL MPV 9.9 (7.9-10.8) fL Neut # (Auto) 13.7 H (1.5-6.6) 10^3/uL Lymph # (Auto) 1.4 L (1.5-3.5) 10^3/uL [place] # (Auto) 0.5 (0.0-1.0) 10^3/uL Eos # (Auto) 0.0 (0.0-0.7) 10^3/uL Baso # (Auto) 0.0 (0.0-0.1) 10^3/uL Absolute Nucleated RBC 0.00 x10^3/uL Nucleated RBC % 0.0 /100WBC ESR 23 H (0-20) mm/Hr Sodium 140 (135-145) mmol/L Potassium 3.9 (3.5-5.0) mmol/L Chloride 103 (101-111) mmol/L Carbon Dioxide 26 (21-32) mmol/L Anion Gap 11.0 (6-13) BUN 13 (6-20) mg/dL Creatinine 0.4 (0.4-1.0) mg/dL Estimated GFR (MDRD) 184 (>89) Glucose 155 H (70-100) mg/dL Calcium 8.9 (8.5-10.3) mg/dL Magnesium 2.4 (1.7-2.8) mg/dL C-Reactive Protein 4.9 H (0-1.0) mg/dL Nasal Screen MRSA (PCR) (NEGATIVE) 07/13/19 Range/Units 17:19 WBC (4.8-10.8) x10^3/uL RBC (4.20-5.40) 10^6/uL Hgb (12.0-16.0) g/dL Hct (37.0-47.0) % MCV (81.0-99.0) fL MCH (27.0-31.0) pg MCHC (32.0-36.0) g/dL RDW (12.0-15.0) % Plt Count (130-450) 10^3/uL MPV (7.9-10.8) fL Neut # (Auto) (1.5-6.6) 10^3/uL Lymph # (Auto) (1.5-3.5) 10^3/uL [place] # (Auto) (0.0-1.0) 10^3/uL Eos # (Auto) (0.0-0.7) 10^3/uL Baso # (Auto) (0.0-0.1) 10^3/uL Absolute Nucleated RBC x10^3/uL Nucleated RBC % /100WBC ESR (0-20) mm/Hr Sodium (135-145) mmol/L Potassium (3.5-5.0) mmol/L Chloride (101-111) mmol/L Carbon Dioxide (21-32) mmol/L Anion Gap (6-13) BUN (6-20) mg/dL Creatinine (0.4-1.0) mg/dL Estimated GFR (MDRD) (>89) Glucose (70-100) mg/dL Calcium (8.5-10.3) mg/dL Magnesium (1.7-2.8) mg/dL C-Reactive Protein (0-1.0) mg/dL Nasal Screen MRSA (PCR) NEGATIVE (NEGATIVE) - Other Results/Comments Other Results/Comments: EXAM: Left elbow: minimally swollen. Erythema improved. Better AROM> N/V ok distally. Packing removed without problem and loosely repacked with corner of 4x4 gauze. Kerlex overwrap with Hernán wrap Sepsis Event Note (H) - Evaluation Current Stage of Sepsis: Sepsis Possible source of Sepsis: positive: Skin/soft tissue - Sepsis Criteria Sepsis Criteria: Recorded Heart Rate greater than 90 bpm, WBC count greater than 12,000 or less than 4000 Assessment/Plan - Problem List (1) Abscess of left forearm Impression: Improved PLAN: Continue on anti - Staph aureus antibiotics, switching to orals in a day or so. Keep on antibiotics until elbow wound heals secondarily (about a week). Nursing to change dressing daily until discharge, then to wound care clinic daily for dressing changes until healed (about 7 days).
[2019-07-14 13:02] LABS: VANCOMYCIN,TROUGH 12.2 ug/mL (10.0-20.0)
[2019-07-14] MEDS ORDERED: VANCOMYCIN INJ 1 GM in SODIUM CHLORIDE 0.9% 250 ML IV SCH (14:00)
--- NOTE | 2019-07-14 15:42 | Discharge Plan ---
Discharge Plan Problem Reviewed?: Yes Disposition: 07 Against Medical Advice Condition: Fair Prescriptions: Cephalexin [Keflex] 500 mg PO QID #28 capsule Diet: Regular Activity Restrictions: Additional Comments (no heroin or speed) No Smoking: If you smoke, Please STOP! Call for help.
[2019-07-14 15:46] VITALS: BP 105/66
--- NOTE | 2019-07-14 16:37 | DISCHARGE SUMMARY ---
"Discharge Summary Admit Date: 07/13/19 Discharge Date: 07/14/19 Discharging Provider: Daxa Matias MD Primary Care Provider: No PCP Code Status: Attempt Resuscitation Condition at Discharge: Fair Discharge Disposition: 07 Against Medical Advice - DIAGNOSES Discharge Diagnoses with Status of Each Condition: 1. Sepsis due to cellulitis 2. Abscess of left forearm 3. IV drug user (methamphetamine addiction, heroin addiction) 4. Hepatitis C - HPI History of Present Illness: 33 year old homeless female with a past medical history significant for meth and heroin use, and hepatitis C who presents complaining of left arm redness and swelling. Her arm became red two days ago but this has progressed over the last two days. She now has an area of swelling near her elbow that is tender to touch. She does use IV heroin and meth with her last use being one day ago when she used both. She last injected in that arm about four days ago. She reports no fevers, chills, nausea, vomiting. She has not had similar complaints in the past. She does have hepatitis C but denies a history of HIV. In the emergency department, she was afebrile but tachycardic. Blood pressure was borderline hypotensive but she reports that her blood pressure is on the lower side. Labs revealed an elevated white count with a left shift. Normal lactic acid. AST/ALT are mildly elevated. A CT of the left arm revealed a [id number] abscess at the lateral aspect for AC fossa involving subcutaneous tissue and proximal forearm muscles. Medicine was consulted for admission given these findings. 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 Reece Figueredo Procedures: 1. Upper extremity CT, left arm. 3 x 3 x 3 cm abscess at the lateral aspect of the antecubital fossa which involves the subcutaneous tissues and proximal forearm musculature. 2. Wound culture of abscess with staph aureus, pansensitive 3. Incision and drainage of left forearm abscess - HOSPITAL COURSE Hospital Course: She was started on empiric antibiotic therapy in the form of vancomycin. White cell count started at 12.8 and increased to 15.8 thousand on the second day of admission. However sedimentation rate went from 40-23. She remained afebrile during her stay. On the second day of her stay she became agitated and felt that she was going to start going through heroin withdrawal and wanted methadone. Methadone was started at 5 mg 3 times daily and she demanded increased to 30 mg, 3 times daily. Methadone was increased. In spite of that the patient left AMA. 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 As such Keflex 500 mg p.o. 4 times daily was called in. She is homeless in [place] but is currently staying with her aunt in [place]. We asked her to please keep the wound clean and dry. We gave her 4 x 4's to change the wound on a daily basis after cleaning it with water. Although she says she would not return, we did ask her to come to the [facility] clinic to get her wounds changed and cleaned. That would be starting the day after tomorrow.I did ask her to refrain from any more heroin or methamphetamine abuse. To please enter into a rehab program. She states that she [place] already done this once before and had known resources. - ALLERGIES Allergies/Adverse Reactions: Allergies Allergy/AdvReac Type Severity Reaction Status Date / Time No Known Drug Allergies Allergy Verified 07/12/19 22:36 - MEDICATIONS Home Medications: Ambulatory Orders Medication Instructions Recorded Confirmed Cephalexin [Keflex] 500 mg PO QID #28 capsule 07/14/19 - PHYSICAL EXAM AT DISCHARGE General Appearance: positive: Alert, Other (Cachectic white female who looks malnourished) ENT: positive: Other (Multiple scab lesions of face) Neck: positive: No JVD Respiratory: positive: Chest non-tender. negative: Wheezes, Rales, Rhonchi Cardiovascular: positive: Regular rate & rhythm. negative: Systolic murmur, Gallop/S4, Friction rub Abdomen: positive: Non-tender, No organomegaly, Nml bowel sounds, No distention Skin: positive: Warm, Dry Extremities: positive: Other (The large red mass of abscess is gone on the left forearm. Surrounding induration and erythema is 50% what it was on admission. Bandage in place.) - LABS Result Diagrams: 07/14/19 05:15 07/14/19 05:15 - SEPSIS Current Stage of Sepsis: Resolved Possible source of Sepsis: Skin/soft tissue Sepsis Criteria: Recorded Heart Rate greater than 90 bpm, WBC count greater than 12,000 or less than 4000"
[2019-07-14] MEDS ORDERED: METHADONE 5 MG TABLET PO SCH (22:00)
== END 2019-07-14 16:00 | disposition left against medical advice (07) | DRG 872 ==
LOC: ED 02:06 → MS2 05:31
PROVIDERS: ADMIT Internal Medicine; ATTEND Specialist
PROC: 0H9EXZZ Drainage of Left Lower Arm Skin, External Approach (ICD-10-PCS; principal; 2019-07-13 10:00)
DX: A41.9 Sepsis, unspecified organism (principal); L03.114 Cellulitis of left upper limb; L02.414 Cutaneous abscess of left upper limb; F11.20 Opioid dependence, uncomplicated; F15.20 Other stimulant dependence, uncomplicated; Z53.29 Procedure and treatment not carried out because of patient's decision for other reasons; B19.20 Unspecified viral hepatitis C without hepatic coma; R45.1 Restlessness and agitation; S51.032S Puncture wound without foreign body of left elbow, sequela; F17.210 Nicotine dependence, cigarettes, uncomplicated; Z59.0 Homelessness
CPT/HCPCS: 36415; 73201; 80048; 80053; 80202; 82550; 83605; 83690; 83735; 85025; 85610; 85651; 86140; 87070; 87181; 87205; 87640; 96365; 99283; 99285; A9270; J1170; J3370; J7120; Q9967; 87040